=== PATIENT | female | born 1975 | race Caucasian/White ===

== ENCOUNTER → 2020-08-10 | Outpatient (CLI) | payer BC | LOC: MAMMO 07:00 | DX: M79.89 Other specified soft tissue disorders (principal); R59.0 Localized enlarged lymph nodes ==

== ENCOUNTER → 2021-10-20 | Outpatient (CLI) | payer BC | LOC: MAMMO 10:42 | DX: Z12.31 Encounter for screening mammogram for malignant neoplasm of breast (principal) ==